=== PATIENT | male | born 1965 | race Caucasian/White ===

== ENCOUNTER 2020-12-13 18:07 | Emergency (ER) | payer SELFPAY ==
--- NOTE | 2020-12-13 18:37 | CT ---
INDICATION: Trauma TECHNIQUE: CT head without contrast. COMPARISON: None FINDINGS: CSF spaces: Within normal limits for age. Brain parenchyma: The serrato-white differentiation is normal. No sign of mass, hemorrhage, or midline shift. Skull base and calvarium: The visualized paranasal sinuses and mastoid air cells demonstrate no acute or significant findings. The visualized orbits are grossly unremarkable. No skull fractures. IMPRESSION: Unremarkable noncontrast head CT. Please note that all CT scans at this facility use dose modulation, iterative reconstruction, and/or weight-based dosing when appropriate to reduce radiation dose to as low as reasonably achievable. Dictated by Marcelo Jose MD @ 12/13/2020 6:36:[address] Marcelo Joes @ Dec 13 2020 6:36PM
[2020-12-13] MEDS ORDERED: Ketorolac 15 MG/ML SDV IM ONE (18:55)
--- NOTE | 2020-12-13 19:21 | CT ---
INDICATION: Trauma TECHNIQUE: CT cervical spine without contrast. COMPARISON: None FINDINGS: Vertebrae: Mild leftward curvature of the cervical spine. Ossification near the spinous process of T1 consistent with congenital incomplete fusion versus old shanti-investment professional`s fracture with nonunion. No acute fracture seen. Discs and facet joints: Facet hypertrophy C3-4 causing mild bilateral foraminal stenosis. Facet hypertrophy C4-5 without significant stenosis. Posterior osteophytes and facet hypertrophy C5-6 causing mild bilateral foraminal stenosis. Facet hypertrophy and small osteophytes at C6-7 causing mild left foraminal stenosis. Facet hypertrophy at C7-T1 without significant stenosis. Extraspinal findings: Right temporomandibular joint osteoarthritis. Apical pleural-parenchymal scarring. IMPRESSION: Multilevel degenerative changes cervical spine without evidence of acute fracture as detailed above. Please note that all CT scans at this facility use dose modulation, iterative reconstruction, and/or weight-based dosing when appropriate to reduce radiation dose to as low as reasonably achievable. Dictated by Kristopher Monroe MD @ 12/13/2020 7:20:[address] Kristopher Monroe @ Dec 13 2020 7:20PM
--- NOTE | 2020-12-13 19:25 | EDM.PDOC ---
ED HPI GENERAL MEDICAL PROBLEM - General Chief Complaint: Trauma Stated Complaint: HIT IN HEAD WITH WRENCH Time Seen by Provider: 12/13/20 18:14 - History of Present Illness INITIAL COMMENTS - FREE TEXT/NARRATIVE: CHIEF COMPLAINT(S): Head injury HISTORY OF PRESENT ILLNESS: This is a 55-year-old man without any past medical history who presents to the emergency department as a trauma alert via walk-in triage for a chief complaint of head injury. Per the patient prior to arrival that he was in a garage working on some steps when a branch fell off the top of the garage which weighed approximately 30 pounds hitting the left side of his head. He denies any loss of consciousness but states that he did have some bleeding. He denies any neck pain, blurry vision, double vision, numbness, tingling, or weakness he denies any other injuries. He denies any chest pain, shortness of breath, abdominal pain, nausea or vomiting. He denies any use of oral anticoagulation. He states that he does have a tetanus shot but is up-to-date. He denies any other symptoms. REVIEW OF SYSTEMS: Constitutional: Denies fever, chills. Eyes: Denies eye pain Ears, Nose, Mouth, & Throat: Denies earache Cardiovascular: Denies chest pain Respiratory: Denies shortness of breath Gastrointestinal: Denies Nausea, vomiting, diarrhea, hematochezia. Genitourinary: Denies hematuria Skin: Positive for bleeding to left scalp. Neurological: Positive for head injury without loss of consciousness. Denies blurred vision, double vision, numbness, tingling, weakness Psychiatric: Denies depression PAST MEDICAL HISTORY: As per history of present illness and as reviewed below otherwise noncontributory. SURGICAL HISTORY: As per history of present illness and as reviewed below otherwise noncontributory. SOCIAL HISTORY: As per history of present illness and as reviewed below otherwise noncontributory. FAMILY HISTORY: As per history of present illness and as reviewed below otherwise noncontributory. EXAMINATION OF ORGAN SYSTEMS/BODY AREAS: VITALS: Blood pressure was 130/82, heart rate 82, respiratory rate 18 with an saturation 98% on room air. Temperature 36.5 GENERAL: The patient is well-nourished, well-developed, in no acute distress. HEAD, EARS, EYES, NOSE THROAT: Normocephalic, with a small hematoma to the left posterior scalp with a 2 cm scalp laceration with minimal bleeding. PERRL. EOM are intact. There was no facial bone tenderness. Ears were clear, no hemotympanum. Oropharynx is clear. No missing or chipped teeth. Neck was supple and nontender. RESPIRATORY: No tachypnea. Equal breath sounds are heard bilaterally. Lungs clear to ausculatation. CARDIOVASCULAR: Regular rate and rhythm. Heart sounds were normal. There is no S3, S4, murmur, rub. There is no chest wall tenderness. No crepitus. Radial and dorsalis pedis pulses were palpable and equal bilaterally. ABDOMEN: The abdomen was soft, nondistended, and nontender to palpation. There was no guarding or rebound tenderness. Bowel sounds were present throughout the abdomen and normal. Pelvis was stable and not tender to rock. SPINE: There is no cervical, thoracic or lumbar spine tenderness. Appropriate rectal tone. EXTREMITIES: Extremity examination revealed no deformity, localized swelling, contusions, or other abnormality. Patient is moving all 4 extremities equally. Distal pulses palpable in bilterally. NEUROLOGICAL: Alert and oriented. On neurological examination Rolando Coma Scale was 15. Facies were symmetrical. Strength was good in all extremities. SKIN: Appropriately warm to touch. No rashes, or pallor. MEDICAL DECISION MAKING AND COURSE IN THE ED WITH INTERPRETATION/REVIEW OF DIAGNOSTIC STUDIES: This is a-year-old man who presents to emergency department as a trauma resuscitation. Immediately upon entering the resuscitation bay ATLS protocol was followed, the patient is disrobed, and placed on continuous cardiac monitoring as well as pulse oximetry. Patient tells me their name displaying a patent airway, breath sounds are equal bilaterally, and patient has palpable pulses in all 4 extremities. The patient does not have any gross deformities, and does not have any gross deficit. Upon exposure there is a small laceration to the posterior left scalp with minimal bleeding.. Palpation of the cervical, thoracic, and lumbar spine reveals no tenderness. At this time given the weight at the wrench and the trauma on examination will obtain a CT head and CT cervical spine to evaluate for any acute intracranial abnormality. Patient's tetanus is up-to-date. We will hold off on pain medication at this time. With this initial workup completed the patient is suitable for transfer to CT. The radiological images were viewed by myself along with reading the report from the radiologist. CT head without contrast does not reveal any acute intracranial abnormality. CT cervical spine does not reveal any fracture or subluxation. Laceration Repair Note Repair of the 2 cm left posterior scalp wound was done by myself. Wound was irrigated well with saline. No foreign bodies were noted. The wound was repaired with 2 jeanne wound edges approximated well. Bacitracin ointment and a sterile dressing were applied. After imaging and laceration repair I did discuss that he need to have the jeanne removed in 5 to 7 days. I discussed that he did hit his head and therefore I did give him strict closed head injury precautions. He is to return for any new or worsening symptoms. He was amenable discharge at this time and had no further questions. DISPOSITION: The patient was discharged home in stable condition. The patient will follow up in 5 to 7 days for staple removal PROCEDURES: Staple repair of laceration FINAL IMPRESSION(S)/DIAGNOSES: 1. Acute closed head injury 2. Acute self laceration status post staple repair Ricardo Esquivel M.D. left head/ear Pain Score (Numeric/FACES): 8 - Related Data Allergies Allergy/AdvReac Type Severity Reaction Status Date / Time No Known Allergies Allergy Verified 12/13/20 18:17 Home Meds: Home Meds Glucosamine [Glucosamine Sulfate] 1 tab PO DAILY 12/13/20 [History] Multivitamin [One-Daily Multi-Vitamin] 1 tab PO DAILY 12/13/20 [History] Past Medical History HEENT History: Reports: None Cardiovascular History: Reports: None Respiratory History: Reports: None Gastrointestinal History: Reports: None Genitourinary History: Reports: None Musculoskeletal History: Reports: None Neurological History: Reports: None Psychiatric History: Reports: None Endocrine/Metabolic History: Reports: None Hematologic History: Reports: None Immunologic History: Reports: None Oncologic (Cancer) History: Reports: None Dermatologic History: Reports: None - Infectious Disease History Infectious Disease History: Reports: None - Past Surgical History Head Surgeries/Procedures: Reports: None HEENT Surgical History: Reports: None Cardiovascular Surgical History: Reports: None Respiratory Surgical History: Reports: None GI Surgical History: Reports: None Male Surgical History: Reports: None Endocrine Surgical History: Reports: None Neurological Surgical History: Reports: None Musculoskeletal Surgical History: Reports: None Oncologic Surgical History: Reports: None Dermatological Surgical History: Reports: None Social & Family History - Family History Family Medical History: Unobtainable - Tobacco Use Tobacco Use Status *Q: Never Tobacco User - Caffeine Use Caffeine Use: Reports: None - Recreational Drug Use Recreational Drug Use: No Review of Systems - Review of Systems Review Of Systems: See Below ED EXAM, GENERAL - Physical Exam Exam: See Below Course - Vital Signs Last Recorded V/S: Last Vital Signs Temp 36.2 C 12/13/20 19:15 Pulse 76 12/13/20 19:31 Resp 17 12/13/20 19:31 BP 110/77 12/13/20 19:31 Pulse Ox 98 12/13/20 19:31 - Orders/Labs/Meds Meds: Medications Discontinued Medications Generic Name Dose Route Start Last Admin Trade Name Kath PRN Reason Stop Dose Admin Ketorolac Tromethamine 15 mg 12/13/20 18:55 12/13/20 19:09 Ketorolac 15 Mg/Ml Sdv IM 12/13/20 18:56 15 mg ONETIME ONE Administration Departure - Departure Time of Disposition: 19:24 Disposition: Home, Self-Care 01 Condition: Fair Clinical Impression: Scalp laceration, Head injury - Discharge Information *PRESCRIPTION DRUG MONITORING PROGRAM REVIEWED*: No *COPY OF PRESCRIPTION DRUG MONITORING REPORT IN PATIENT CHAVA: No Instructions: Head Injury, Adult, [id number], Laceration Care, Adult, [id number] Forms: ED Department Discharge Additional Instructions: You were evaluated today on an emergent basis. At this time we did get CTs which were negative for any fracture or brain bleed. We did repair the laceration to your scalp with 2 jeanne. These need to be removed in 5 to 7 days. If you have any pus drainage, redness please return to the emergency department. I do recommend that she use Tylenol and Motrin for pain relief and to refrain from screen time, phone, or exerting yourself. He did not have any loss of consciousness but may still have a concussion. I recommend that you f ollow-up with your primary care physician at home. Please use: Tylenol 500-1000mg every 6 hours (DO NOT TAKE MORE THAN 4000mg in 1 day) Ibuprofen 400mg every 6 hours (Take with food as it can cause ulcers, GI upset) Example schedule: 8:00 AM (Tylenol 500-1000mg) 11:00 AM (Ibuprofen 400mg) 2:00 PM (Tylenol 500-1000mg) 5:00 PM (Ibuprofen 400mg) The patient is informed of any results of their evaluation and diagnostic workup and all questions are answered. They are given discharge instructions and return precautions. The patient is stable for discharge. The patient states they understand and agree with the plan and that they will return if their symptoms get worse or if they have any new concerns. The following information is given to patients seen in the emergency department who are being discharged to home. This information is to outline your options for follow-up care. We provide all patients seen in our emergency department with a follow-up referral. The need for follow-up, as well as the timing and circumstances, are variable depending upon the specifics of your emergency department visit. If you don't have a primary care physician on staff, we will provide you with a referral. We always advise you to contact your personal physician following an emergency department visit to inform them of the circumstance of the visit and for follow-up with them and/or the need for any referrals to a consulting specialist. The emergency department will also refer you to a specialist when appropriate. This referral assures that you have the opportunity for follow-up care with a specialist. All of these measure are taken in an effort to provide you with optimal care, which includes your follow-up. Under all circumstances we always encourage you to contact your private physic susanne who remains a resource for coordinating your care. When calling for follow- up care, please make the office aware that this follow-up is from your recent emergency room visit. If for any reason you are refused follow-up, please contact the [facility] Emergency Department at and asked to speak to the emergency department charge nurse. Sepsis Event Note (ED) - Evaluation Sepsis Screening Result: No Definite Risk
== END 2020-12-13 19:33 | disposition home or self-care (01) ==
LOC: MW.ED 18:07
DX: S01.01XA Laceration without foreign body of scalp, initial encounter (principal); W22.8XXA Striking against or struck by other objects, initial encounter
CPT/HCPCS: 70450; 72125; 96372; 99283; J1885; 12001